=== PATIENT | female | born 1960 | race Caucasian/White ===

== ENCOUNTER 2017-08-06 08:58 | Day surgery (SDC) | payer OTHER ==
[2013-11-22 07:41] VITALS: BMI 34.0
--- NOTE | 2017-08-06 09:33 | CP.SDSHP ---
Same Day Surgery H & P - History Proposed Procedure: colonoscopy - Previous Medical/Surgical History Endocrine/Metabolic: Thyroid Disease, Diabetes - Allergies Allergies: Allergies No Known Allergies Allergy (Verified 11/22/13 07:41) - Date & Time Date: 08/06/17 Time: 09:33 Short Stay Discharge - Short Stay Discharge Admitting Diagnosis/Reason for Visit: ENCOUNTER FOR SCREENING FOR MALIGNANT NEOPLASM OF Disposition: HOME/ ROUTINE
[2017-08-06] MEDS ORDERED: Lactated Ringer's 500 ML IV ONE ×2 (10:00)
[2017-08-06] MEDS ORDERED: Propofol 10 mg/ml Inj (20 ML) ONE (10:08)
[2017-08-06 10:48] VITALS: TEMP 97.3; O2SAT 100
[2017-08-06 11:25] VITALS: BP 121/65; PULSE 81; RESP 17
== END 2017-08-06 11:44 | disposition home or self-care (01) ==
LOC: C.ENDO 08:58
PROVIDERS: ATTEND Colon & Rectal Surgery
DX: Z12.11 Encounter for screening for malignant neoplasm of colon (principal); Z88.8 Allergy status to other drugs, medicaments and biological substances; Z79.84 Long term (current) use of oral hypoglycemic drugs; E89.0 Postprocedural hypothyroidism; E11.9 Type 2 diabetes mellitus without complications; D12.0 Benign neoplasm of cecum; K62.1 Rectal polyp; K64.8 Other hemorrhoids
CPT/HCPCS: 45380; 45385; 82948; 88305; J2704; J7120